=== PATIENT | female | born 1955 | race Caucasian/White ===

== ENCOUNTER → 2020-09-22 12:16 | Outpatient (CLI) | payer OTHER, SELFPAY ==
--- NOTE | ~2020-09-22 | XR_ITS ---
XR sacroiliac joints min 3V DATE: 09/22/2020 12:59 INDICATION: Left hip pain TECHNIQUE: AP and bilateral oblique views COMPARISON: None FINDINGS: The sacroiliac joints are intact. No erosive change or ankylosis. The pubic symphysis is in tact. There is moderate bilateral hip osteoarthritis. There is prominent degenerative disc disease at L4-5 and to a lesser extent L5-S1. Degenerative brewer es noted at the apophyseal joints of the lower lumbar/lumbosacral area. IMPRESSION: Degenerative disc disease at L4-5 and L5-S1 Degenerative change at the apophyseal joints of the lower lumbar/lumbosacral area Negative sacroiliac joints Moderately prominent bilateral hip osteoarthritis Reviewed, dictated and finalized at Location A. Reviewed, dictated and finalized at location B. MOVER IMPRESSION: Degenerative disc disease at L4-5 and L5-S1 Degenerative change at the apophyseal joints of the lower lumbar/lumbosacral ar ea Negative sacroiliac joints Moderately prominent bilateral hip osteoarthritis
--- NOTE | ~2020-09-22 | XR_ITS ---
XR lumbar spine 2-3V DATE: 09/22/2020 12:59 INDICATION: Low back pain with left sciatica TECHNIQUE: AP, lateral, coned lateral lumbosacral views COMPARISON: None FINDINGS: The lumbar vertebrae are normally aligned. No fracture or bone destruction is evident. The included lower thoracic pedicles from T10 through L5 are intact. There is multilevel degenerative disc disease, moderately severe at L1-2 and L2-3 and severe at L4-5, mild at L3-4 and L5-S1. No spondylolisthesis. The sacroiliac joints are intact. IMPRESSION: Multilevel degenerative disc disease, most pronounced at L4-5 Reviewed, dictated and finalized at location B. 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
--- NOTE | ~2020-09-22 | XR_ITS ---
XR hip LT min 2V DATE: 09/22/2020 12:59 INDICATION: Left hip pain TECHNIQUE: AP and lateral views COMPARISON: None FINDINGS: There is prominent joint space narrowing and mild spurring of the left hip joint consistent with left hip osteoarthritis. No fracture or dislocation or bone destruction is detected. The pubic symphysis and left sacroiliac joint are intact. Degenerative disc disease is noted particularly at L4-5. IMPRESSION: Moderately prominent left hip osteoarthritis Reviewed, dictated and finalized at location B. 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
== END ==
PROVIDERS: PCP Internal Medicine; Visit Provider Internal Medicine
DX: M54.42 Lumbago with sciatica, left side (principal); G89.29 Other chronic pain; M51.36 Other intervertebral disc degeneration, lumbar region; M16.12 Unilateral primary osteoarthritis, left hip
CPT/HCPCS: 72100; 72202; 73502

== ENCOUNTER 2020-11-13 12:45 | Outpatient (CLI) | payer OTHER, SELFPAY ==
[2020-11-13 13:17] LABS: Basophils Percent Auto 0.6 % (0.2-1.2); Eosinophils Percent Auto 0.6 % (0-4.4); Hematocrit 37.6 % (37.0-47.0); Hemoglobin 12.7 g/dL (12.0-15.0); Immature Granulocyte Absolute 0.02 K/mm3 (0.00-0.031); Immature Granulocyte Percent A 0.3 % (0-0.5); Lymphocytes Absolute Auto 2.85 K/mm3 (0.9-3.2); Lymphocytes Percent Auto 42.9 % (18.3-44.2); Mean Corpuscular HGB Conc 33.8 g/dl (32-36); Mean Corpuscular Hemoglobin 30.1 pg (26-34); Mean Corpuscular Volume 89.1 fl (80-100); Monocytes Absolute Auto 0.5 K/mm3 (0.1-0.6); Monocytes Percent Auto 7.2 % (2.6-8.5); Neutrophils Absolute Auto 3.2 K/mm3 (1.3-6.7); Neutrophils Percent Auto 48.4 % (45.5-73.1); Platelet Count Result 267 k/mm3 (150-375); Red Blood Count 4.22 M/mm3 (4.2-5.4); White Blood Count 6.7 K/mm3 (4.5-10.0)
[2020-11-13 13:28] LABS: Anion Gap 7 mmol/L (8-16); Blood Urea Nitrogen 13 mg/dL (7-17); Calcium 9.7 mg/dL (8.4-10.2); Carbon Dioxide 26 mmol/L (22-30); Chloride 104 mmol/L (98-107); Estimated Glomerular Filt Rate > 60; Glucose 105 mg/dL (65-105); Sodium 137 mmol/L (137-145)
[2020-11-14 07:56] LABS: SARS-CoV-2 IgG Non-Reactive
[2020-11-20 15:09] LABS: Complement Total CH50 >60 U/mL (31-60)
== END 2020-11-13 12:46 | disposition home or self-care (01) ==
PROVIDERS: PCP Internal Medicine; Visit Provider Internal Medicine
DX: Z01.84 Encounter for antibody response examination (principal); R21 Rash and other nonspecific skin eruption; L50.9 Urticaria, unspecified; Z79.899 Other long term (current) drug therapy
CPT/HCPCS: 36415; 80048; 85025; 86162; 86769

== ENCOUNTER 2021-08-11 07:23 | Outpatient (CLI) | payer OTHER, MEDICARE, SELFPAY ==
--- NOTE | ~2021-08-11 | NM_ITS ---
EXAMINATION: NM radha stress w perfusion DATE: 08/11/2021 10:36 INDICATION: Chest pain TECHNIQUE: Rest images were obtained following intravenous administration of 10.9 mCi Tc99m tetrofosm in (Myoview). The patient was infused intravenously with Lexiscan (Regadenoson). Then, 33.5 mCi Tc99m tetrofosmin (Myoview) was administered intravenously, and stress images were obtained. Data was yesica nstructed into short axis and horizontal and vertical long axis SPECT images. Gated SPECT images were also obtained. COMPARISON: None. FINDINGS: There is no definite reversible or fixed perfusion abnormality to suggest ischemia or infar ction. There is normal left ventricular chamber size, wall motion and ejection fraction. Left ventr icular ejection fraction measures >70%. IMPRESSION: 1. Normal myocardial perfusion at rest and during stress. 2. Left ventricular ejection fraction measuring >70%. Reviewed, dictated and finalized at location B.
--- NOTE | 2021-08-11 07:48 | ECHO_ITS ---
Patient Info Name: Sarita Fox Age: 66 years : 1955 Gender: Female Ht: 67 in Wt: 185 lbs BSA: 2.01 m2 HR: 76 bpm BP: 139 / 88 mmHg Technical Quality: Fair Exam Date: 08/11/2021 8:07 AM Exam Location: [facility] Pulmonary Patient Status: Outpatient Admit Date: 08/11/2021 Staff Ordering Physician: Sami Mahmood MD Press Washer: BARBIE Attending Provider: Sami Mahmood MD Referring Physician: Ela TEJEDA; Exam Type: CA echo doppler color flow Study Info Indications I10 - Essential (primary) hypertension Complete two-dimensional, color flow and Doppler transthoracic echocardiogram is performed. Summary 1. Complete two-dimensional, color flow and Doppler transthoracic echocardiogram is performed. 2. Left ventricular chamber dimension is normal. 3. Left ventricular systolic function is normal, estimated at 60-65%. 4. The left ventricular diastolic function is grade I diastolic dysfunction. 5. E/e' 9 is minimally elevated. 6. No pulmonary hypertension, estimated pulmonary arterial systolic pressure is 8 mmHg. Left Ventricle E/e' 9 is minimally elevated. Left ventricular chamber dimension is normal. Left ventricular systolic function is normal, estimated at 60-65%. The left ventricular diastolic function is grade I diastolic dysfunction. Right Ventricle Right ventricular chamber dimension is normal. Right ventricular systolic function is normal. Left Atria Left atrial chamber dimension is normal. Right Atria Right atrial chamber dimension is normal. Aortic Valve The aortic valve is trileaflet. There is no aortic valve stenosis. There is no aortic valve regurgitation. Pulmonic Valve There is no pulmonic regurgitation. Mitral Valve There is no mitral valve stenosis. There is no mitral valve regurgitation. Tricuspid Valve There is no tricuspid valve regurgitation. No pulmonary hypertension, estimated pulmonary arterial systolic pressure is 8 mmHg. Pericardium/Pleural There is no pericardial effusion. Inferior Vena Cava Normal inferior vena cava with >50% collapse upon inspiration consistent with normal right atrial pressure, 5 mmHg. Aorta The aortic root size at the sinus of Valsalva is normal. Left Ventricular Outflow Tract Name Value Normal LVOT 2D LVOT Diameter 1.8 cm LVOT Doppler LVOT Peak Gradient 6 mmHg LVOT Mean Gradient 3 mmHg LVOT VTI 26 cm LVOT VTI/AV VTI Ratio 0.8 LVOT Stroke Volume 70 ml LVOT CO 12.2 l/min LVOT CI 6.1 l/min/m2 Mitral Valve Name Value Normal MV Doppler MV Decel Mathews 266 cm/s2 MV PHT 79 ms
--- NOTE | 2021-08-11 07:49 | EST_ITS ---
Patient Info Name: Sarita Fox Age: 66 years : 1955 Gender: Female Ht: 67 in Wt: 185 lbs BSA: 2.01 m2 HR: 76 bpm BP: 162 / 76 mmHg Heart Rhythm: Sinus Rhythm Exam Date: 08/11/2021 9:39 AM Exam Location: [facility] Stress Patient Status: Outpatient Admit Date: 08/11/2021 Staff Ordering Physician: Sami Mahmood MD Attending Provider: Sami Mahmood MD Exercise Technologist: Meri Antonio CT Exercise Physician: Tc Boyd DO Exam Type: CA stress radha w NM Study Info Indications R00.2 - Palpitations R06.02 - Shortness of breath A regadenoson stress test was performed. Summary 1. 1. Negative lexiscan stress test for ischemic ST changes by ECG criteria. 2. 2. Baseline hypertension. 3. 3. Nuclear scan to follow and will be reported separately. Please correlate with it. 4. 4. Patient informed of the above results. Protocol: Lexiscan Stress ECG Details Stage: REST Duration (min): 1 min : 59 sec HR (bpm): 76 SBP (mmHg): 162 DBP (mmHg): 76 Stage: REST Duration (min): 9 min : 4 sec HR (bpm): 82 SBP (mmHg): 162 DBP (mmHg): 76 Stage: STAGE 1 Duration (min): 1 min : 0 sec HR (bpm): 97 SBP (mmHg): 162 DBP (mmHg): 76 Stage: RECOVERY Duration (min): 1 min : 0 sec HR (bpm): 104 SBP (mmHg): 161 DBP (mmHg): 68 Stage: RECOVERY Duration (min): 2 min : 0 sec HR (bpm): 97 SBP (mmHg): 161 DBP (mmHg): 68 Stage: RECOVERY Duration (min): 3 min : 0 sec HR (bpm): 91 SBP (mmHg): 191 DBP (mmHg): 61 Stage: RECOVERY Duration (min): 3 min : 16 sec HR (bpm): 92 SBP (mmHg): 191 DBP (mmHg): 61 Rest HR: 82 bpm Peak HR: 104 bpm Rest Sys BP: 162 mmHg Peak Sys BP: 191 mmHg Max Pred HR: 154 bpm % Max Pred HR: 68 % Target HR: 131 bpm Max RPP: 19,864 bpm*mmHg Termination Reason: Completed protocol Cardiac Symptoms: Shortness of breath, Throat discomfort Total Time: 1 min : 0 sec Rest Stanford BP: 76 mmHg Peak Stanford BP: 61 mmHg Total Dose: 0.4 mg Resting ECG Sinus rhythm. Stress ECG No ST changes. Arrhythmias None. Report Signatures
--- NOTE | 2021-08-19 12:35 | WPDHOLTEREM ---
Holter/Event Monitor Holter/Event Monitor Date of procedure: 08/11/21 Holter/Event Procedure: 48 Hr Holter Monitor Indications: SOB Conclusion: 1. 48 hour holter monitor on 08/11/21. 2. Underlying rhythm is sinus rhythm. HR range 63-120 bpm; average HR 77 bpm. 3. There are 316 premature supraventricular complexes. No supraventricular tachycardia. 4. There is 1 premature ventricular complex. No ventricular tachycardia. 5. No sinoatrial or atrioventricular blocks. No significant pauses greater than 2 seconds. 6. No symptoms available for correlation.
== END 2021-08-11 07:24 | disposition home or self-care (01) ==
PROVIDERS: PCP Internal Medicine; Visit Provider Internal Medicine
DX: R06.02 Shortness of breath (principal); R00.2 Palpitations; R53.83 Other fatigue; R07.89 Other chest pain
CPT/HCPCS: 78452; 93017; 93225; 93226; 93306; A9502; J2785

== ENCOUNTER 2022-05-06 10:36 | Outpatient (CLI) | payer MEDICARE, SELFPAY | END 2022-05-06 10:37 | disposition home or self-care (01) | LOC: ANHAUDIO 10:38 | PROVIDERS: PCP Internal Medicine; Visit Provider Otolaryngology | DX: H91.90 Unspecified hearing loss, unspecified ear (principal) | CPT/HCPCS: 92567 ==

== ENCOUNTER 2022-05-11 11:01 | Outpatient (CLI) | payer MEDICARE, SELFPAY ==
--- NOTE | ~2022-05-11 | XR_ITS ---
EXAMINATION: XR lumbar spine 2-3V DATE: 05/11/2022 11:27 INDICATION: Low back and hip pain TECHNIQUE: Anteroposterior and lateral views of the lumbar spine, and cone-down lateral view of the l umbosacral junction were obtained. COMPARISON: 09/22/2020 FINDINGS: There is no fracture. There are 3 mm of unchanged retrolisthesis of L4 on L5. There is edwin re loss of intervertebral disc space height at L4-5 and mild loss of disc space height at L1-2 and L2 -3. The vertebral body heights are maintained. Degenerative osteophytes project from the anterior end plates of multiple vertebral bodies. There is moderate lower facet osteoarthritis. IMPRESSION: 1. Moderate lumbar spondylosis without acute findings or significant interval change. Reviewed, dictated and finalized at location B. IMPRESSION: 1. Moderate lumbar spondylosis without acute findings or significant interval ave lópez
--- NOTE | ~2022-05-11 | XR_ITS ---
EXAMINATION: XR hip BI wo pelvis INDICATION: Hip pain TECHNIQUE: Two views of each hip are obtained. COMPARISON: 09/22/2020 FINDINGS: Bone alignment is normal. There is no fracture. There is severe osteoarthritis at the super olateral aspect of the left hip with interval worsening since the comparison examination. There is mo derate osteoarthritis of the right hip. Phleboliths are noted in the pelvis. The soft tissues are oth erwise unremarkable. IMPRESSION: 1. Severe osteoarthritis at the superolateral aspect of the left hip with interval worsening. 2. Moderate right hip osteoarthritis. Reviewed, dictated and finalized at location B. IMPRESSION: 1. Severe osteoarthritis at the superolateral aspect of the left hip with inter laron worsening. 2. Moderate right hip osteoarthritis.
== END 2022-05-11 11:02 | disposition home or self-care (01) ==
PROVIDERS: PCP Internal Medicine; Visit Provider Internal Medicine
DX: M54.42 Lumbago with sciatica, left side (principal); G89.29 Other chronic pain; M47.896 Other spondylosis, lumbar region; M16.0 Bilateral primary osteoarthritis of hip
CPT/HCPCS: 72100; 73521

== ENCOUNTER → 2022-06-09 07:12 | Outpatient (CLI) | payer MEDICARE, SELFPAY ==
--- NOTE | ~2022-06-09 | MR_ITS ---
EXAMINATION: MR hip RT wo con, MR hip LT wo con DATE: 06/09/2022 08:05 INDICATION: Several months of bilateral hip pain, right greater than left TECHNIQUE: 1. Magnetic resonance imaging (MRI) of the right hip was performed without intravenous contrast. Sequ ences included full-field axial PD-weighted FS FSE and T1-weighted FSE, coronal of the pelvis with PD -weighted FS FSE, T2-weighted FSE and T1-weighted FSE, small field of view of the right hip with axi al PD-weighted FS FSE, sagittal PD-weighted FS FSE, coronal PD-weighted FS FSE and coronal T2 weight ed FSE. Additional radial T1-weighted FGR oriented orthogonal to the acetabular rim were obtained for evaluation of the labrum. 2. MRI of the left hip was performed without intravenous contrast. Sequences included additional smal l field of view of the left hip with axial PD-weighted FS FSE, sagittal PD-weighted FS FSE, coronal P D-weighted FS FSE and coronal T2 weighted FSE. Additional radial T1-weighted FGR oriented orthogonal to the acetabular rim were obtained for evaluation of the labrum. COMPARISON: Radiographs dated 05/11/2022 FINDINGS: Bones/labrum/cartilage: Alignment is normal. No fracture, avascular necrosis or pathologic marrow replacing process. Severe lower lumbar spondylosis with severe disc height loss and degenerative fibrofatty endplate changes at L4-L5. Severe bilateral lower lumbar facet osteoarthritis. There appears to be anterior acetabular o shun coverage at the left hip which could predispose towards pincer-type femoral acetabular impingemen t.. Severe osteoarthritis at the left hip with anterosuperior predominant nonuniform joint space narr owing with prominent subarticular edema-like and cystlike changes at the anterosuperior left acetabul um. Small to moderate size marginal osteophytes about the left femoral head. There is diffuse degener ative tearing of the left acetabular labrum. Moderate osteoarthritis at the left hip with nonuniform joint space narrowing with posterior and anteroinferior predominant partial-thickness cartilage loss. Mild reticular cystlike changes at the anteroinferior right acetabulum with more extensive edema-lik e signal change extending from the anteroinferior to the anterosuperior right acetabulum. Small erik nal osteophytes along the right femoral head. There is additional degenerative tearing of the small a nterior to superolateral right acetabular labrum. Fluid: Asymmetric small right hip joint effusion. Physiologic amount of fluid in the left hip joint space. N o bursitis, tenosynovitis, free fluid in the pelvis or other abnormal fluid collections. Soft tissues: Normal and symmetric muscle bulk and signal in the pelvis and visualized proximal thighs. The iliopso as, gluteal and proximal hamstring tendons are normal. Limited evaluation of visceral organs of the p vikki is unremarkable. No pathologically enlarged pelvic/inguinal lymphadenopathy. IMPRESSION: 1. Severe left and moderate right hip osteoarthritis with associated bilateral labral degeneration. 2. Nonspecific small right hip joint effusion. 3. Severe lower lumbar spondylosis. Reviewed, dictated and finalized at location A. IMPRESSION: 1. Severe left and moderate right hip osteoarthritis with associated bilateral labral degeneration. 2. Nonspecific small right hip joint effusion. 3. Severe lower lumbar spondylosis.
== END ==
PROVIDERS: PCP Internal Medicine; Visit Provider Internal Medicine
DX: M16.0 Bilateral primary osteoarthritis of hip (principal); M47.816 Spondylosis without myelopathy or radiculopathy, lumbar region
CPT/HCPCS: 73721

== ENCOUNTER 2022-08-30 13:03 | Outpatient (CLI) | payer MEDICARE, SELFPAY ==
--- NOTE | ~2022-08-30 | XR_ITS ---
EXAMINATION: XR lg joint inject/asp w image DATE: 08/30/2022 14:16 INDICATION: Right hip pain. TECHNIQUE: A time-out was performed to verify the patient's name, date of , and procedure to b e performed. The procedure including the risks, benefits, and alternatives was discussed with the pat ient. Risks discussed included bleeding and infection. The patient understood the risks and agreed to proceed. The skin overlying the right hip joint was prepped and draped in usual sterile fashion. A nesthetic was administered with 1% lidocaine subcutaneously. A 22 G needle was advanced under fluoro scopic guidance into the joint. Subsequently, injectate consisting of 4 mL 1% lidocaine and 1 mL 80 mg/mL Depo-Medrol was instilled. The needle was removed and the entry site was cleaned and dressed. There were no immediate complications. Fluoroscopy exposure time was 0.1 minutes. The total number o f images was 1. FINDINGS: Real-time fluoroscopy demonstrates the needle in the right hip joint. Patient's pain prior to procedure:5/10. Patient's pain following the procedure: 2/10. IMPRESSION: 1. Fluoroscopy guided right hip joint injection of local anesthetic and steroid with decrease in the patient's presenting pain. Reviewed, dictated and finalized at location A.
== END 2022-08-30 13:04 | disposition home or self-care (01) ==
LOC: ANHIMG 13:08
PROVIDERS: PCP Internal Medicine; Visit Provider Orthopaedic Surgery
DX: M25.551 Pain in right hip (principal)
CPT/HCPCS: 20610; 77002; J1040

== ENCOUNTER → 2022-09-22 12:58 | Outpatient (CLI) | payer MEDICARE, SELFPAY ==
--- NOTE | ~2022-09-22 | DEXA_ITS ---
Corrected Report Change to Ordering Provider 09/29/2022 DUSTIN This report was recreated on 09/29/2022. Original report was signed by ELIOT on 09/29/2022 1:09:00 PM. Bone Density Report Name: MATT WISE Age: 67 Sex: Female Ethnicity: White Date of : 1955 Indication: postmenopausal; screening for osteoporosis; parental hip fracture; Referring Provider: NORTH WRIGHT Study: Bone densitometry was performed. Exam Date: September 22, 2022 Accession number: [id number] Bone Density: Region BMD T-score Z-score Classification AP Spine (L1, L2, L3) 1.030 0.1 2.0 Normal Femoral Neck (Left) 0.853 0.0 1.7 Normal Total Hip (Left) 0.915 -0.2 1.1 Normal Femoral Neck (Right) 0.916 0.6 2.2 Normal Total Hip (Right) 0.923 -0.2 1.2 Normal Total Hip Mean 0.919 -0.2 1.2 Normal World Health Organization criteria for BMD impression classify patients as: Normal (T-score at or above -1.0), Osteopenia (T-score between -1.0 and -2.5), or Osteoporosis (T-score at or below -2.5). 10-year Fracture Risk: FRAX not reported because: All T-scores for Spine Total, Hip Total, Femoral Neck at or above -1.0 Treated for osteoporosis Clinical Information Provided by Patient: Parent has had a hip fracture Is being treated for osteoporosis Has used the following medications: HRT (i.e. estrogen/hormone therapy), Vitamin D, Calcium Patient maximum height was 67 Menopause Age: 52 No regular weight bearing exercise Drinks caffeinated beverages Onset of menses at age 13 Number of children 0 Impression: The patient has normal bone mass. The patient has risk factors, including: parental hip fracture. Discussion: It is important to ask patients whether they are taking their medications and to encourage continued and appropriate compliance with their osteoporosis therapies to reduce fracture risk. It is also important to review their risk factors and encourage appropriate calcium and vitamin D intakes, exercise, fall prevention and other lifestyle measures. Follow-Up: Consider a repeat BMD and Vertebral Fracture Assessment (VFA) exam in 2 years or sooner if medically necessary, to reassess this patient's status. Reported by: ELIOT on 09/29/2022 1:09:00 PM. Reviewed, dictated and finalized at location [facility]
== END ==
PROVIDERS: PCP Internal Medicine
DX: Z13.820 Encounter for screening for osteoporosis (principal); Z78.0 Asymptomatic menopausal state
CPT/HCPCS: 77080

== ENCOUNTER → 2023-09-27 07:57 | Outpatient (CLI) | payer MEDICARE, SELFPAY ==
--- NOTE | ~2023-09-27 | US_ITS ---
US abdomen complete EXAMINATION: US Abdomen Complete INDICATION: Abdomen pain. Reflux. PROCEDURE: Realtime High Resolution abdomen ultrasound. COMPARISON: No prior studies for comparison FINDINGS: Gallbladder within normal limits. No gallstones, pericholecystic fluid, gallbladder wall t hickening or biliary dilatation. Common bile duct measures 3 mm. Liver echotexture within normal limits without focal mass. There is liver cysts, largest measuring 1. 8 cm. Pancreas within normal limits. Pancreatic tail is obscured by bowel gas. Spleen is unremarkea ble. Renal echotexture is within normal limits bilaterally without hydronephrosis, contour deforming mass or renal stone. Right kidney measures 9.2 cm. Left kidney measures 12.2 cm. Visualized aspects of the aorta and IVC are within normal limits. Portal vein is patent. No sonograph ic Luna's sign indicated by the technologist. IMPRESSION: 1: Liver cysts, largest measuring 1.8 cm. Reviewed, dictated and finalized at location . UCTOR ORCHESTRA
== END ==
PROVIDERS: PCP Internal Medicine; Visit Provider Internal Medicine
DX: R10.9 Unspecified abdominal pain (principal); K21.9 Gastro-esophageal reflux disease without esophagitis; R14.0 Abdominal distension (gaseous); K76.89 Other specified diseases of liver
CPT/HCPCS: 76700

== ENCOUNTER 2023-10-28 08:47 | Emergency (ER) | payer MEDICARE, SELFPAY ==
--- NOTE | ~2023-10-28 | XR_ITS ---
Clinical Indication: Cough PA and lateral views of the chest: Comparison: 11/21/2017 Findings: The lungs are clear, without evidence of focal consolidation or pleural effusion. Possible COPD. Cardiomediastinal silhouette is within normal limits. Bones and soft tissues are unremarkable. Impression: Clear lungs. Possible COPD. Reviewed, dictated and finalized at location M. CLERK Impression: Clear lungs. Possible COPD.
[2023-10-28 08:49] VITALS: BP 149/70; PULSE 91; RESP 20; TEMP 36.6; O2SAT 98
--- NOTE | 2023-10-28 09:14 | ED.URI ---
HPI - URI/Sore Throat General Chief Complaint: Upper Respiratory Infection Stated Complaint: Back Pain due to Coughing Time Seen by Provider: 10/28/23 08:52 Source: patient and other (friend) Mode of arrival: ambulatory Limitations: no limitations History of Present Illness HPI Narrative: this is a 68-year-old female presents with low back pain that started approximately 1 week ago. Patient has been dealing with a cough and notes that her back pain has been worsening ever since. Pain radiates into her buttock and down her left side. cough has been productive of yellow mucus. She has been on multiple antibiotics. She was vaccinated against flu and COVID on August 21. The pain has been significant enough that she has required using a walker she had at the house from a previous hip replacement surgery in January. She has been taking Tylenol, ibuprofen, and cyclobenzaprine. No saddle anesthesia. she does experience leakage of fluid from her bladder/ gushing when she coughs. she had been on Robitussin. She was given amoxicillin and completed that course. She had also been prescribed prednisone x5 days but felt that dosage was too strong so took half of each daily dose and still has remaining prednisone. She has also been using Flonase and Tessalon Perles. She believes the antibiotics she has been taking have caused a yeast infection. Related Data Home Medications Medication Instructions Recorded Confirmed norethindrone acetate 0.5 1 tablet PO DAILY 10/29/19 10/14/23 mg-ethinyl estradiol 2.5 mcg tablet multivitamin 1 tablet PO DAILY 06/11/20 10/14/23 alprazolam 0.25 mg tablet 0.25 mg PO TID PRN anxiety 10/21/22 10/14/23 escitalopram oxalate 10 mg tablet 10 mg PO DAILY 10/21/22 10/14/23 magnesium 200 mg tablet 200 mg PO DAILY 10/21/22 10/14/23 cholecalciferol (vitamin D3) 25 100 mcg PO DAILY 09/12/23 10/14/23 mcg (1,000 unit) capsule esomeprazole magnesium 40 mg 40 mg PO DAILY 10/14/23 10/14/23 capsule,delayed release (Nexium) Allergies Allergy/AdvReac Type Severity Reaction Status Date / Time thimerosal Allergy Intermediate ITCHY, RED Verified 09/21/23 09:17 EYES FROM DROPS nitrofurantoin Allergy Mild Hives Verified 09/21/23 09:17 [From Macrobid] aspirin Allergy Unknown Unknown Verified 09/21/23 09:17 epinephrine Allergy Unknown Tachycardia Verified 09/21/23 09:17 latex Allergy Unknown Redness of Verified 10/14/23 14:08 Skin NSAIDS (Non-Steroidal Allergy Unknown unknown Verified 09/21/23 09:17 Anti-Inflamma Sulfa (Sulfonamide Allergy Unknown rash/headac Verified 09/21/23 09:17 Antibiotics) he trazodone AdvReac Mild Headache Verified 09/21/23 09:17 clindamycin AdvReac Diarrhea Verified 09/21/23 09:17 [facility] Past Medical History Medical History (Updated 10/29/23 @ 00:00 by Background Daemon) Abdominal pain Anxiety Anxiety Avulsion fracture of bone Benign essential hypertension Bilateral hip pain BMI 27.0-27.9,adult BMI 28.0-28.9,adult BMI 29.0-29.9,adult BMI 30.0-30.9,adult Chronic low back pain Closed nondisplaced fracture of fifth metatarsal bone of right foot Elevated homocysteine Encounter for Medicare annual wellness exam Encounter for preventive health examination Encounter for routine adult health examination with abnormal findings Encounter for routine adult health examination without abnormal findings Encounter for screening mammogram for malignant neoplasm of breast Essential tremor Fatigue Follow up Gastroesophageal reflux disease without esophagitis GERD (gastroesophageal reflux disease) Grade I diastolic dysfunction Hearing loss Hormone replacement therapy (HRT) HTN (hypertension) Hyperlipidemia Hypersomnia IBS (irritable bowel syndrome) Impacted cerumen Insomnia Left hip pain Left sided sciatica Lumbar spondylosis Major depressive disorder, single episode, unspecified Mixed hyperlipidemia Myalgia On half-way drug therapy On half-way drug therapy Onyc
[2023-10-28] MEDS: ACETAMINOPHEN 325 MG TABLET 650 MG PO (09:38)
[2023-10-28] MEDS: FLUCONAZOLE 150 MG TABLET PO (09:38)
[2023-10-28] MEDS: HYDROcodone/acetaminophen (*CRX) 5-325 MG TABLET 1 TAB PO (09:39)
[2023-10-28 10:05] LABS: Appearance Urine Clear (Clear); Bacteria Urine 4+ /hpf; Bilirubin Urine Negative (Negative); Blood Urine Negative (Negative); Color Urine Yellow (Yellow); Glucose Urine UA Negative (Negative); Ketones Urine Negative (Negative); Leukocyte Esterase Ur 1+ LEU/UL (Negative); Nitrate Urine Positive (Negative); Non Pathogenic Casts 0-2; Protein Urine Negative (Negative); RBC Urine 0-2 /hpf (0-2); Specific Grav Ur 1.009 (1.001-1.035); Squamous Epithelial Cell Urine None seen /hpf (Few); Urobilinogen Urine 0.2 mg/dL (<2.0); pH Urine 6.5 (5.0-9.0)
[2023-10-28 10:10] LABS: Add Urine Microscopic? YES
[2023-10-28 10:53] LABS: Influenza A QL RT-PCR Negative (Negative); Influenza B QL RT-PCR Negative (Negative); RSV RNA, RT-PCR Negative (Negative); SARS-CoV-2 RNA PCR Negative (Negative)
[2023-10-28 12:30] VITALS: BP 142/84; PULSE 85; RESP 16; O2SAT 98
== END 2023-10-28 12:30 | disposition home or self-care (01) ==
PROVIDERS: Emergency Provider Student in an Organized Health Care Education/Training Program; PCP Internal Medicine
DX: M54.42 Lumbago with sciatica, left side (principal); N39.0 Urinary tract infection, site not specified; R05.3 Chronic cough; Z20.822 Contact with and (suspected) exposure to COVID-19; I10 Essential (primary) hypertension; E78.2 Mixed hyperlipidemia; E55.9 Vitamin D deficiency, unspecified; K21.9 Gastro-esophageal reflux disease without esophagitis; K58.9 Irritable bowel syndrome, unspecified; M16.0 Bilateral primary osteoarthritis of hip; F41.9 Anxiety disorder, unspecified; F43.10 Post-traumatic stress disorder, unspecified; Z86.16 Personal history of COVID-19; R91.8 Other nonspecific abnormal finding of lung field
CPT/HCPCS: 71046; 81001; 87077; 87086; 87186; 87637; 96365; 99284; A9270; J0696

== ENCOUNTER 2023-11-16 10:49 | Outpatient (CLI) | payer MEDICARE, SELFPAY ==
--- NOTE | ~2023-11-16 | XR_ITS ---
XR sacroiliac joints min 3V DATE: 11/16/2023 11:16 INDICATION: Groin pain, left pelvic pain TECHNIQUE: AP and bilateral oblique views of the sacroiliac joints COMPARISON: 06/2022 AP pelvis and bilateral hips FINDINGS: Normal alignment at the sacroiliac joints. No erosive change or ankylosis. No pelvic or sac ral fracture or bone destruction is evident. There is severe degenerative disc disease at L4-5 and L5-S1. Severe left hip osteoarthritis. Status post right total hip arthroplasty. IMPRESSION: Lower lumbar degenerative disc disease status post right total hip arthroplasty Severe left hip osteoarthritis Unremarkable sacroiliac joints Reviewed, dictated and finalized at Location A. Reviewed, dictated and finalized at location B. 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
--- NOTE | ~2023-11-16 | XR_ITS ---
XR lumbar spine min 4V DATE: 11/16/2023 11:16 INDICATION: Low back pain, radiating TECHNIQUE: AP, lateral, flexion and extension lateral views COMPARISON: 05/11/2022 lumbar spine FINDINGS: Normal alignment of the lumbar spine. No fracture or bone destruction is detected. Included lower thoracic and lumbar pedicles are intact. There is severe degenerative disc disease and prominent spurring at L4-5. There is mild degenerative disease at the remaining lumbar and upper sacral interspaces. No spondylolisthesis. No instability on flexion or extension. The sacroiliac joints are intact. Status post right total hip arthroplasty. Severe left hip osteoarthritis. Cannot exclude avascular necrosis of left femoral head on this limite d view of the left hip. IMPRESSION: Severe degenerative disc disease at L4-5 Prominent left hip osteoid arthritis; cannot exclude avascular necrosis of left femoral head Osteoarthritis right total hip arthroplasty Reviewed, dictated and finalized at location B. T [employer]PER[employer]OR
== END 2023-11-16 10:50 | disposition home or self-care (01) ==
PROVIDERS: PCP Internal Medicine; Visit Provider Internal Medicine
DX: M54.50 Low back pain, unspecified (principal); M54.30 Sciatica, unspecified side; M51.36 Other intervertebral disc degeneration, lumbar region; M16.12 Unilateral primary osteoarthritis, left hip
CPT/HCPCS: 72110; 72202

== ENCOUNTER 2024-02-07 10:50 | Outpatient (CLI) | payer MEDICARE, SELFPAY ==
--- NOTE | ~2024-02-07 | US_ITS ---
EXAMINATION: US carotid duplex BI DATE: 02/07/2024 11:52 INDICATION: Carotid stenosis. TECHNIQUE: Grayscale, color Doppler, and pulsed Doppler images of the cervical carotid arteries were obtained. The degree of vessel stenosis is placed in one of the following categories: normal, <50%, 5 0-69%, >=70% but less than near-occlusion, near-occlusion, or total occlusion. Note that percent sten osis relative to normal distal artery lumen diameter is indirectly measured from velocity measurement s as described by Anjum, et al. Radiology 2003; 229:340-346. Notes: Normal: Peak systolic velocity <125 centimeters/sec and no plaque <50%. Peak systolic velocity <125 ( EDV <40; ICA/CCA PSV ratio <2.0; used these factors only a tandem lesions or low cardiac output or co ntralateral disease) 50-69 %: PSV 125-230 (EDV 40-100; ratio 2-4) >= 70% but less than near occlusion: PSV greater than 230 (EDV > 100; ratio> 4.0) Near Occlusion: PSV that is variable; markedly narrowed lumen Occlusion: Absent flow on color/spectral Doppler and no lumen on cason scale. COMPARISON: None. FINDINGS: RIGHT: The right common carotid artery (CCA) peak systolic velocity (PSV) is 98 cm/s. The right internal car otid artery (ICA) PSV is 107 cm/s. The right ICA end-diastolic velocity (EDV) is 23 cm/s. The right I CA/CCA PSV ratio is 1.1. The external carotid artery (ECA) PSV is 91 cm/s. There is antegrade flow in the right vertebral artery. LEFT: The left CCA PSV is 101 cm/s. The left ICA PSV is 106 cm/s. The left ICA EDV is 26 cm/s. The left ICA /CCA PSV ratio is 1.0. The ECA PSV is 79 cm/s. There is antegrade flow in the left vertebral artery. IMPRESSION: 1. Less than 50% stenosis in the right internal carotid artery by sonographic criteria. 2. Less than 50% stenosis in the left internal carotid artery by sonographic criteria. Reviewed, dictated and finalized at location A. IMPRESSION: 1. Less than 50% stenosis in the right internal carotid artery by sonographic [address]. 2. Less than 50% stenosis in the left internal carotid artery by sonographic [place].
== END 2024-02-07 10:51 | disposition home or self-care (01) ==
PROVIDERS: PCP Internal Medicine; Visit Provider Internal Medicine
DX: R09.89 Other specified symptoms and signs involving the circulatory and respiratory systems (principal); I65.23 Occlusion and stenosis of bilateral carotid arteries
CPT/HCPCS: 93880

== ENCOUNTER 2024-03-30 03:01 | Day surgery (SDC) | payer MEDICARE, SELFPAY ==
--- NOTE | 2024-03-30 08:11 | WPDANESEPPF ---
Anes - Initial Pre Proc Eval Procedure: Operation Date: 03/30/24 11:30 Proposed Procedures p Esophagogastroduodenoscopy - Regulo Vasques MD Date/Time: 03/30/24 08:11 Surgeon: Regulo Vasques MD Pre Op Diagnosis: GERD without esophagitis Patient Data Age: 68 Gender: F Height: 1.7 m Weight: 87 kg Allergies Allergy/AdvReac Type Severity Reaction Status Date / Time thimerosal Allergy Intermediate ITCHY, RED Verified 03/30/24 10:07 EYES FROM DROPS nitrofurantoin Allergy Mild Hives Verified 03/30/24 10:07 [From Macrobid] aspirin Allergy Unknown Unknown Verified 03/30/24 10:07 epinephrine Allergy Unknown Tachycardia Verified 03/30/24 10:07 latex Allergy Unknown Redness of Verified 03/30/24 10:07 Skin NSAIDS (Non-Steroidal Allergy Unknown unknown Verified 03/30/24 10:07 Anti-Inflamma Sulfa (Sulfonamide Allergy Unknown rash/headac Verified 03/30/24 10:07 Antibiotics) he trazodone AdvReac Mild Headache Verified 03/30/24 10:07 clindamycin AdvReac Diarrhea Verified 03/30/24 10:07 Home Medications Medication Instructions Recorded Confirmed Type norethindrone acetate 0.5 1 tablet PO DAILY 10/29/19 03/30/24 History mg-ethinyl estradiol 2.5 mcg tablet multivitamin 1 tablet PO DAILY 06/11/20 03/30/24 History alprazolam 0.25 mg tablet 0.25 mg PO TID PRN anxiety 10/21/22 03/30/24 History escitalopram oxalate 10 mg tablet 10 mg PO DAILY 10/21/22 03/30/24 History magnesium 200 mg tablet 200 mg PO DAILY 10/21/22 03/30/24 History levocetirizine 5 mg tablet 5 mg PO DAILY PRN allergy symptoms 03/09/23 03/30/24 Rx #60 tabs cholecalciferol (vitamin D3) 25 100 mcg PO DAILY 09/12/23 03/30/24 History mcg (1,000 unit) capsule tramadol 50 mg tablet 50 mg PO Q6H PRN pain #40 tabs 11/17/23 03/30/24 Rx cyclobenzaprine 10 mg tablet See Rx Instructions .Route 11/22/23 03/30/24 Rx .COMPLEX #45 tabs propranolol 10 mg tablet See Rx Instructions .Route 12/30/23 03/30/24 Rx .COMPLEX #270 tabs atorvastatin 20 mg tablet 20 mg PO DAILY #90 tabs 01/30/24 03/30/24 Rx esomeprazole magnesium 40 mg 40 mg PO DAILY PRN Acid Reflux 01/30/24 03/30/24 History capsule,delayed release (Nexium) Patient hx anesthesia problems: none Family hx anesthesia problems: none Results Review: All pre-operative results and documents have been reviewed as part of the pre-operative evaluation. [facility] Past Medical History Medical History (Updated 01/30/24 @ 10:53 by Yuki Iverson, [facility]) Abdominal pain Anxiety Anxiety Avulsion fracture of bone Benign essential hypertension Bilateral hip pain BMI 27.0-27.9,adult BMI 28.0-28.9,adult BMI 29.0-29.9,adult BMI 30.0-30.9,adult Bruit of right carotid artery Chronic low back pain Closed nondisplaced fracture of fifth metatarsal bone of right foot Elevated homocysteine Encounter for Medicare annual wellness exam Encounter for preventive health examination Encounter for routine adult health examination with abnormal findings Encounter for routine adult health examination without abnormal findings Encounter for screening mammogram for malignant neoplasm of breast Essential tremor Fatigue Follow up Gastroesophageal reflux disease without esophagitis GERD (gastroesophageal reflux disease) Grade I diastolic dysfunction Hearing loss Hormone replacement therapy (HRT) HTN (hypertension) Hyperlipidemia Hypersomnia IBS (irritable bowel syndrome) Impacted cerumen Insomnia Left hip pain Left sided sciatica Liver cyst Lumbar spondylosis Major depressive disorder, single episode, unspecified Mixed hyperlipidemia Myalgia On detention drug therapy 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
[2024-03-30 10:11] VITALS: BP 154/67; PULSE 80; RESP 16; TEMP 36.3; O2SAT 99
[2024-03-30] MEDS: LACTATED RINGERS 1,000 ML 150 ML IV CONT (10:19)
--- NOTE | 2024-03-30 10:43 | WPDANESEPPF ---
Anes - Initial Pre Proc Eval Procedure: Operation Date: 03/30/24 11:30 Proposed Procedures p Esophagogastroduodenoscopy - Regulo Vasques MD Date/Time: 03/30/24 10:43 Surgeon: Regulo Vasques MD Pre Op Diagnosis: GERD without esophagitis Patient Data Age: 68 Gender: F Height: 1.7 m Weight: 82.9 kg Last Vital Signs Temp 97.3 F L 03/30/24 10:11 Pulse 80 03/30/24 10:11 Resp 16 03/30/24 10:11 BP 154/67 H 03/30/24 10:11 Pulse Ox 99 03/30/24 10:11 O2 Del Method Room Air 03/30/24 10:11 Allergies Allergy/AdvReac Type Severity Reaction Status Date / Time thimerosal Allergy Intermediate ITCHY, RED Verified 03/30/24 10:07 EYES FROM DROPS nitrofurantoin Allergy Mild Hives Verified 03/30/24 10:07 [From Macrobid] aspirin Allergy Unknown Unknown Verified 03/30/24 10:07 epinephrine Allergy Unknown Tachycardia Verified 03/30/24 10:07 latex Allergy Unknown Redness of Verified 03/30/24 10:07 Skin NSAIDS (Non-Steroidal Allergy Unknown unknown Verified 03/30/24 10:07 Anti-Inflamma Sulfa (Sulfonamide Allergy Unknown rash/headac Verified 03/30/24 10:07 Antibiotics) he trazodone AdvReac Mild Headache Verified 03/30/24 10:07 clindamycin AdvReac Diarrhea Verified 03/30/24 10:07 Home Medications Medication Instructions Recorded Confirmed Type norethindrone acetate 0.5 1 tablet PO DAILY 10/29/19 03/30/24 History mg-ethinyl estradiol 2.5 mcg tablet multivitamin 1 tablet PO DAILY 06/11/20 03/30/24 History alprazolam 0.25 mg tablet 0.25 mg PO TID PRN anxiety 10/21/22 03/30/24 History escitalopram oxalate 10 mg tablet 10 mg PO DAILY 10/21/22 03/30/24 History magnesium 200 mg tablet 200 mg PO DAILY 10/21/22 03/30/24 History levocetirizine 5 mg tablet 5 mg PO DAILY PRN allergy symptoms 03/09/23 03/30/24 Rx #60 tabs cholecalciferol (vitamin D3) 25 100 mcg PO DAILY 09/12/23 03/30/24 History mcg (1,000 unit) capsule tramadol 50 mg tablet 50 mg PO Q6H PRN pain #40 tabs 11/17/23 03/30/24 Rx cyclobenzaprine 10 mg tablet See Rx Instructions .Route 11/22/23 03/30/24 Rx .COMPLEX #45 tabs propranolol 10 mg tablet See Rx Instructions .Route 12/30/23 03/30/24 Rx .COMPLEX #270 tabs atorvastatin 20 mg tablet 20 mg PO DAILY #90 tabs 01/30/24 03/30/24 Rx esomeprazole magnesium 40 mg 40 mg PO DAILY PRN Acid Reflux 01/30/24 03/30/24 History capsule,delayed release (Nexium) Patient hx anesthesia problems: none Family hx anesthesia problems: none Results Review: All pre-operative results and documents have been reviewed as part of the pre-operative evaluation. [facility] Past Medical History Medical History (Updated 01/30/24 @ 10:53 by Yuki Iverson, [facility]) Abdominal pain Anxiety Anxiety Avulsion fracture of bone Benign essential hypertension Bilateral hip pain BMI 27.0-27.9,adult BMI 28.0-28.9,adult BMI 29.0-29.9,adult BMI 30.0-30.9,adult Bruit of right carotid artery Chronic low back pain Closed nondisplaced fracture of fifth metatarsal bone of right foot Elevated homocysteine Encounter for Medicare annual wellness exam Encounter for preventive health examination Encounter for routine adult health examination with abnormal findings Encounter for routine adult health examination without abnormal findings Encounter for screening mammogram for malignant neoplasm of breast Essential tremor Fatigue Follow up Gastroesophageal reflux disease without esophagitis GERD (gastroesophageal reflux disease) Grade I diastolic dysfunction Hearing loss Hormone replacement therapy (HRT) HTN (hypertension) Hyperlipidemia Hypersomnia IBS (irritable bowel syndrome) Impacted cerumen Insomnia Left hip pain Left sided sciatica Liver cyst Lumbar spondylosis Major depressive disorder, single episode, unspecified Mixed hyperlipidemia Myalgia 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
--- NOTE | 2024-03-30 10:58 | PM.HPGS ---
History of Present Illness History of Present Illness Consent: Risks, benefits, and alternatives have been discussed and questions answered. Patient agrees to proceed with procedure. Chief complaint: GERD without esophagitis Narrative: Sarita Fox is a 68 year old female with gerd using nexium and pepcid but both only as needed, also bloating, never had egd Review of Systems Review of Systems: All systems reviewed & are unremarkable except as noted in HPI and below PMFSH Past Medical History Medical History (Updated 01/30/24 @ 10:53 by Yuki Iverson CMA) Abdominal pain Anxiety Anxiety Avulsion fracture of bone Benign essential hypertension Bilateral hip pain BMI 27.0-27.9,adult BMI 28.0-28.9,adult BMI 29.0-29.9,adult BMI 30.0-30.9,adult Bruit of right carotid artery Chronic low back pain Closed nondisplaced fracture of fifth metatarsal bone of right foot Elevated homocysteine Encounter for Medicare annual wellness exam Encounter for preventive health examination Encounter for routine adult health examination with abnormal findings Encounter for routine adult health examination without abnormal findings Encounter for screening mammogram for malignant neoplasm of breast Essential tremor Fatigue Follow up Gastroesophageal reflux disease without esophagitis GERD (gastroesophageal reflux disease) Grade I diastolic dysfunction Hearing loss Hormone replacement therapy (HRT) HTN (hypertension) Hyperlipidemia Hypersomnia IBS (irritable bowel syndrome) Impacted cerumen Insomnia Left hip pain Left sided sciatica Liver cyst Lumbar spondylosis Major depressive disorder, single episode, unspecified Mixed hyperlipidemia Myalgia On [facility] drug therapy 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 Onychomycosis Osteoarthritis of left hip Osteoarthritis of right hip Palpitation Personal history of COVID-19 PTSD (post-traumatic stress disorder) Rash Right foot pain Screening for breast cancer Screening for colon cancer Shortness of breath Tremor Urticaria Vitamin D deficiency Vitamin D deficiency Surgical History Surgical History History of dilatation and curettage History of total right hip replacement Hx of wisdom tooth extraction Family History Family History Mother Diabetes mellitus Family history of glaucoma Hypertension Family history of diabetes mellitus in first degree relative Osteoporosis Breast cancer Father Family history of malignant neoplasm of urinary bladder Dementia Sibling Coma Motor vehicle accident victim Other Family history of malignant neoplasm of breast in first degree relative Social History Social History Smoking status: Never smoker Second hand tobacco smoke exposure: No Alcohol intake: former Substance use: never Substance use type: does not use Lack of Transportation: No Lack of Food: Never True Current Housing: I Have Housing Concerned About Future Housing: No Difficulty Paying Gas/Electric Bills: No Difficulty Paying for Meds: No Currently Unemployed: No Education: Master's Degree or Higher Difficulty w/ Childcare or Family Care: No Living arrangements: alone Occupation/Education: retired 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 Gender identity (if verbalized by the patient): Female Spiritual care concerns: No Meds Home Medications and Allergies Home Medications Medication Instructions Recorded Confirmed Type norethindrone acetate 0.5 1 tablet PO DAILY 10/29/19 03/30/24 History mg-ethinyl estradiol 2.5 mcg tablet multivitamin 1 tablet PO DAILY 06/11/20 03/30/24 History alprazolam 0.25 mg tablet 0.25 mg PO TID PRN anxiety 10/21/22 03/30/24 History escitalopram oxalate 10 mg tablet 10 m
[2024-03-30 11:10] VITALS: BP 134/73; PULSE 76; RESP 19; O2SAT 100
[2024-03-30 11:20] VITALS: BP 156/75; PULSE 77; RESP 23; O2SAT 98
[2024-03-30 11:30] VITALS: BP 167/82; PULSE 69; RESP 21; O2SAT 100
== END 2024-03-30 11:33 | disposition home or self-care (01) ==
PROVIDERS: PCP Internal Medicine; Visit Provider Internal Medicine Gastroenterology
PROC: 0DJ08ZZ Inspection of Upper Intestinal Tract, Via Natural or Artificial Opening Endoscopic (ICD-10-PCS; CPT 43235; principal; 2024-03-30 11:30)
DX: K29.50 Unspecified chronic gastritis without bleeding (principal); K31.7 Polyp of stomach and duodenum; K44.9 Diaphragmatic hernia without obstruction or gangrene; K21.9 Gastro-esophageal reflux disease without esophagitis; E78.2 Mixed hyperlipidemia; E55.9 Vitamin D deficiency, unspecified; G47.10 Hypersomnia, unspecified; F41.9 Anxiety disorder, unspecified; K58.9 Irritable bowel syndrome, unspecified; I11.9 Hypertensive heart disease without heart failure; R01.1 Cardiac murmur, unspecified; G89.29 Other chronic pain; M54.50 Low back pain, unspecified; G25.0 Essential tremor; G47.00 Insomnia, unspecified; F32.9 Major depressive disorder, single episode, unspecified; F43.10 Post-traumatic stress disorder, unspecified; E66.9 Obesity, unspecified; Z68.28 Body mass index [BMI] 28.0-28.9, adult; Z79.891 Long term (current) use of opiate analgesic; Z98.890 Other specified postprocedural states; Z80.3 Family history of malignant neoplasm of breast; Z80.52 Family history of malignant neoplasm of bladder
CPT/HCPCS: 43239; 88305; J2704; J7120